=== PATIENT | female | born 1995 | race Asian ===

== ENCOUNTER 2017-07-29 19:43 | Emergency (ER) | payer OTHER ==
[2017-07-29] MEDS ORDERED: ACETAMINOPHEN 500 MG TAB PO ONE (19:55)
[2017-07-29] MEDS ORDERED: IBUPROFEN 600 MG TAB PO ONE ×2 (19:55→19:56)
--- NOTE | 2017-07-29 20:16 | EDPHY ---
H & P Time Seen by Provider: 07/29/17 19:51 HPI/ROS: CHIEF COMPLAINT: "I have a fever and a sore throat" HISTORY OF PRESENT ILLNESS: 22-year-old female primarily Mandarin speaking. Assistance of Mandarin speaking metal expediter used. Patient complains of 1 day of flu-like symptoms, fever, headache, sore throat. No cough. No rhinorrhea. No nuchal rigidity. No adenopathy. No change in voice. No urinary abnormality. No abdominal pain. No chest pain. No dyspnea. No rash. No international travel within the past 30 days PRIMARY CARE PROVIDER:[employer] REVIEW OF SYSTEMS: A ten point review of systems was performed and is negative with the exception of the items mentioned in the HPI PAST MEDICAL & SURGICAL HISTORY: No pertinent medical or surgical history SOCIAL HISTORY:nonsmoker, [employer] Student PHYSICAL EXAM (Prior to examination, patient consented to physical exam, hands were washed and my usual and customary physical exam procedures followed) 1) GENERAL: Well-developed, well-nourished, alert and oriented. Appears to be in no acute distress. 2) HEAD: Normocephalic, atraumatic 3) HEENT: Pupils equal, round, reactive to light bilaterally. Sclera anicteric. Nasopharynx, oropharynx, clear, no lesions. No tonsillar enlargement or exudate. No trismus no drooling no hot potato voice Ears bilaterally with normal tympanic membranes. 4) NECK: Full range of motion, no meningeal signs. No adenopathy 5) LUNGS: Clear auscultation bilaterally, no wheezes, no rhonchi, no retractions. 6) HEART: Regular rate and rhythm, no murmur, no heave, no gallop. 7) ABDOMEN: No guarding, no rebound, no focal tenderness, negative McBurney's, negative Del Castillo's, negative Rovsing's, negative peritoneal sign, I am unable to elicit any abdominal pain on exam 8) MUSCULOSKELETAL: Moving all extremities, no focal areas of tenderness, no obvious trauma. No peripheral edema or discoloration. 9) BACK: No CVA tenderness, no midline vertebral tenderness, no fluctuance, no step-off, no obvious trauma, no visual or palpable abnormality. 10) SKIN: No rash, no petechiae. 11) Psychiatric: Patient is oriented X 3, there is no agitation. DIFFERENTIAL DIAGNOSIS: in no particular order including but not limited to influenza, strep pharyngitis, viral syndrome, meningitis Smoking Status: Never smoked Constitutional: Initial Vital Signs Temperature (C) 38.3 C 07/29/17 19:46 Heart Rate 110 H 07/29/17 19:46 Respiratory Rate 18 07/29/17 19:46 Blood Pressure 111/70 07/29/17 19:46 O2 Sat (%) 99 07/29/17 19:46 O2 Delivery Mode Room Air Allergies/Adverse Reactions: No Known Allergies Allergy (Unverified 07/29/17 19:50) Home Medications: Medication Instructions Recorded Oseltamivir Phosphate [Tamiflu] 75 mg PO BIDMEAL 5 Days cap 07/29/17 MDM/Departure - MDM Medications Given: Discontinued Medications Acetaminophen (Tylenol) 1,000 mg PO EDNOW ONE Stop: 07/29/17 19:56 Last Admin: 07/29/17 20:10 Dose: 1,000 mg Ibuprofen (Motrin) 600 mg PO EDNOW ONE Stop: 07/29/17 19:56 Last Admin: 07/29/17 20:10 Dose: 600 mg ED Course/Re-evaluation: Care of patient under supervision of secondary supervising physician Dr Mojica . Given Motrin and Tylenol, re-evaluated with serial examinations, most recently at 9:20 p.m. with the assistance of the metal expediter, patient feeling improvement, patient has defervesced, heart rate has decreased. Doubt sepsis. Doubt meningitis. Discussed influenza possibility. Testing pending. I do not think the patient needs to wait in the emergency department. Plan will be discharged with Tamiflu. I do not think that chest x-ray indicated she is breathing comfortably, lungs are clear bilaterally, maintain normal saturations. Usual and customary precautions and instructions provided - Depart Disposition: Home, Routine, Self-Care Clinical Impression: Influenza-like illness Condition: Good Instructions: Influenza (ED) Additional Instructions: You were examined in the emergency department today for upper respiratory infection (URI) like symptoms. While more URIs are caused by viral illnesses, we cannot always exclude the possibility of a bacterial infection that may require treatment with antibiotics. Please be re-examined by a medical professional within 24 hours. Return to the emergency department immediately for change in breathing habits, change in voice, change in swallowing habits, change in mental status, or any other symptoms that concern you. Prescriptions: Oseltamivir Phosphate [Tamiflu] 75 mg PO BIDMEAL 5 Days cap Referrals: [facility] [Clinic] - 1-2 days without fail
[2017-07-29 21:16] VITALS: RESP 16
[2017-07-29 21:48] VITALS: BP 114/63; PULSE 80; TEMP 99.1; O2SAT 94
== END 2017-07-29 21:46 | disposition home or self-care (01) ==
DX: J11.1 Influenza due to unidentified influenza virus with other respiratory manifestations (principal)